=== PATIENT | female | born 1950 | race Caucasian/White ===

== ENCOUNTER → 2017-11-24 16:58 | Outpatient (REF) | payer MEDICARE, BC, SELFPAY ==
--- NOTE | 2017-11-24 16:00 | SKI_PTH ---
PATIENT: Pauly Miller LOC: [facility] U#:[id number] AGE/SX: 74/F ROOM: RE11/24/[address]: Gail Evangelista APRN : 1950 BED: DIS: SPEC #: [id number] RECD: 11/25/17 12:18 STATUS: DONNELL MADRIGAL #: [id number] NEO: 11/24/17 16:[address]: Gail Evangelista DEPT: Surgical Specimen RECD BY: Marisol Dupree Tissues: 1 - SKIN CYST/TAG/DEBRIDEMENT Procedures: SKIN BIOPSY LEVEL 3 Comments: [id number]
== END ==
LOC: LBN 16:58
DX: L82.0 Inflamed seborrheic keratosis (principal)
CPT/HCPCS: 88304

== ENCOUNTER 2017-12-13 07:05 | Outpatient (CLI) | payer MEDICARE, BC, SELFPAY ==
[2017-12-13 11:11] LABS: ALT 25 U/L (12-78); AST 24 U/L (15-37); Albumin 3.5 g/dL (3.4-5.0); Alkaline Phosphatase 82 U/L (46-116); Anion Gap 6.5 mmol/L (3-11); BUN 12 mg/dL (7-18); Bilirubin, Total 0.5 mg/dL (0.2-1.0); CO2 29.5 mmol/L (21.0-32.0); CREATININE 0.65 mg/dL (0.55-1.02); Calcium 8.8 mg/dL (8.5-10.1); Chloride 100 mmol/L (98-107); Glucose 88 mg/dL (70-100); Potassium 4.1 mmol/L (3.5-5.1); Sodium 136 mmol/L (136-145); TSH (W/Ref FT4) 2.77 uIU/mL (0.358-3.74); Total Protein 6.5 g/dL (6.4-8.2)
== END 2017-12-13 07:25 ==
DX: E03.9 Hypothyroidism, unspecified (principal)
CPT/HCPCS: 36415; 80053; 84443

== ENCOUNTER 2018-04-15 01:37 | Outpatient (CLI) | payer MEDICARE, BC, SELFPAY ==
[2018-04-15 12:30] LABS: TSH (W/Ref FT4) 4.16 uIU/mL (0.358-3.74)
[2018-04-15 12:54] LABS: FREE T4 1.01 ng/dL (0.76-1.46)
== END 2018-04-15 01:57 ==
DX: E03.9 Hypothyroidism, unspecified (principal); G47.00 Insomnia, unspecified
CPT/HCPCS: 36415; 84439; 84443

== ENCOUNTER 2018-08-29 09:47 | Outpatient (CLI) | payer MEDICARE, BC, SELFPAY ==
[2018-08-29 13:00] LABS: TSH (W/Ref FT4) 1.82 uIU/mL (0.358-3.74)
== END 2018-08-29 10:07 ==
DX: E03.9 Hypothyroidism, unspecified (principal); G47.00 Insomnia, unspecified
CPT/HCPCS: 36415; 84443

== ENCOUNTER 2018-12-27 12:32 | Outpatient (CLI) | payer MEDICARE, BC, SELFPAY ==
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
== END 2018-12-27 12:52 ==
DX: M25.562 Pain in left knee (principal); M17.12 Unilateral primary osteoarthritis, left knee
CPT/HCPCS: 73562

== ENCOUNTER 2018-12-30 08:13 | Outpatient (CLI) | payer MEDICARE, BC, SELFPAY ==
[2018-12-30 11:17] LABS: ALT 21 U/L (14-59); AST 18 U/L (15-37); Albumin 3.8 g/dL (3.4-5.0); Alkaline Phosphatase 78 U/L (46-116); Anion Gap 7.6 mmol/L (3-11); BUN 10 mg/dL (7-18); Bilirubin, Total 0.6 mg/dL (0.2-1.0); CO2 30.4 mmol/L (21.0-32.0); CREATININE 0.85 mg/dL (0.55-1.02); Calcium 9.5 mg/dL (8.5-10.1); Chloride 99 mmol/L (98-107); Glucose 91 mg/dL (70-100); Potassium 4.7 mmol/L (3.5-5.1); Sodium 137 mmol/L (136-145); TSH (W/Ref FT4) 3.62 uIU/mL (0.36-3.74); Total Protein 6.9 g/dL (6.4-8.2); Vitamin B12 796 pg/mL (193-986)
== END 2018-12-30 08:33 ==
DX: E03.9 Hypothyroidism, unspecified (principal); R41.3 Other amnesia; G47.00 Insomnia, unspecified; D51.8 Other vitamin B12 deficiency anemias
CPT/HCPCS: 36415; 80053; 82607; 84443

== ENCOUNTER 2020-03-01 02:01 | Outpatient (CLI) | payer MEDICARE, BC, SELFPAY ==
[2020-03-02 16:45] LABS: COVID-19 RT-PCR Result NEGATIVE (Negative)
== END 2020-03-01 02:21 ==
DX: Z11.59 Encounter for screening for other viral diseases (principal)
CPT/HCPCS: U0003

== ENCOUNTER 2020-03-23 11:30 | Emergency (ER) | payer MEDICARE, BC, SELFPAY ==
[2020-03-23] VITALS (14 sets, daily range): BP systolic 109–125; BP diastolic 67–72; PULSE 61–84; RESP 14–24; TEMP 36.5; O2SAT 95–99
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
--- NOTE | 2020-03-23 11:45 | RT.EKG_ITS ---
APPROVED REPORT Exam: Resting ECG Patient Location: E HR:64 bpm ECG Measurements Heart Rate 64 AXIS AR 155 P 35 QRSd 73 QRS 56 QT 419 T 56 QTc 433 Conclusion Sinus rhythm...normal P axis, V-rate 60- 99
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
[2020-03-23] MEDS: Normal Saline Flush 10 ML SYR IVP ×2 (12:00→13:05)
[2020-03-23 12:01] LABS: Abs Immature Grans 0.08 10^3/uL (0.0-0.06); Absolute Basophil Count 0.07 10^3/uL (0.0-0.2); Absolute Eosinophil Count 0.16 10^3/uL (0.0-0.7); Absolute Lymphocyte Count 1.76 10^3/uL (1.2-3.4); Absolute Monocyte Count 0.73 10^3/uL (0.1-0.8); Absolute Neutrophil Count 7.62 10^3/uL (1.2-6.7); Basophils % 0.7; Eosinophils % 1.5; HCT 41.7 % (36.0-46.0); HGB 14.3 g/dL (11.2-15.7); Immature Grans % 0.8; Lymphocytes % 16.9; MCH 32.1 pg (27.0-33.0); MCHC 34.3 % (32.0-36.0); MCV 93.5 fL (80-95); MPV 9.5 fL (8.0-11.0); Neutrophils % 73.1; Nucleated RBC 0 %; Platelet Count 254 10^3/uL (130-400); RBC 4.46 10^6/uL (3.93-5.22); RDW 11.7 % (11.7-14.6); RDW-SD 40.4 fL; WBC 10.42 10^3/uL (4.4-10.8)
[2020-03-23] MEDS: Normal Saline 1,000 ML 150 ML IV (12:05)
[2020-03-23 12:15] LABS: ALT 37 U/L (14-59); AST 36 U/L (15-37); Albumin 3.8 g/dL (3.4-5.0); Alkaline Phosphatase 96 U/L (46-116); Anion Gap 5.6 mmol/L (3-11); BUN 9 mg/dL (7-18); Bilirubin, Total 0.6 mg/dL (0.2-1.0); CO2 28.4 mmol/L (21.0-32.0); CREATININE 0.76 mg/dL (0.55-1.02); Calcium 9.2 mg/dL (8.5-10.1); Chloride 97 mmol/L (98-107); Glucose 114 mg/dL (74-106); Magnesium 2.1 mg/dL (1.8-2.4); Potassium 3.7 mmol/L (3.5-5.1); Sodium 131 mmol/L (136-145); Total Protein 7.1 g/dL (6.4-8.2)
[2020-03-23] MEDS: Omnipaque 350 MG/ML 100 ML BTL IJ (13:05)
[2020-03-23] MEDS: Normal Saline - Diluent 50 ML VIAL IV (13:05)
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
[2020-03-23] MEDS: Acetaminophen 500 MG TAB 1000 MG PO (14:40)
[2020-03-23] MEDS: oxyCODONE 5 MG TAB PO (14:40)
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
--- NOTE | 2020-03-23 15:05 | NUR.NOTE ---
Nursing Note: Family updated on results and plan of care- aware pt is requesting home discharge. concerned about pt's sensitivit to 'strong medication'. MD aware.
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
[2020-03-23] MEDS: Ondansetron O.D.T. 4 MG TABEF, 3 TABS/BTL PO (15:40)
== END 2020-03-23 15:52 | disposition home or self-care (01) ==
PROVIDERS: Emergency Provider Emergency Medicine
DX: S42.002A Fracture of unspecified part of left clavicle, initial encounter for closed fracture (principal); S62.524A Nondisplaced fracture of distal phalanx of right thumb, initial encounter for closed fracture; S22.43XA Multiple fractures of ribs, bilateral, initial encounter for closed fracture; S00.03XA Contusion of scalp, initial encounter; V18.0XXA Pedal cycle driver injured in noncollision transport accident in nontraffic accident, initial encounter
CPT/HCPCS: 74177; 80053; 93005; 96360; 96361; 99285; 70450; 71260; 72125; 73030; 73140; 83735; 85025; 93010; 99284; J3490

== ENCOUNTER 2020-04-11 11:14 | Outpatient (CLI) | payer MEDICARE, BC, SELFPAY ==
--- NOTE | 2020-04-11 11:00 | DI.RAD_ITS ---
EXAM: XR CLAVICLE LT CLINICAL HISTORY: follow up TECHNIQUE: COMPARISON: CR,XR XR SHOULDER LT COMPLETE 2+V from 03/23/2020 FINDINGS: Two views were obtained and show previously described fracture of the distal clavicle with no gross i nterval change in alignment of the fracture fragments in comparison with previous examination Decee r . Left 2nd rib and 1st rib fractures also again noted, unchanged. IMPRESSION: RADIATION DOSE DELIVERED: Total DLP
--- NOTE | 2020-04-11 11:00 | DI.RAD_ITS ---
EXAM: XR THUMB RT CLINICAL HISTORY: follow up TECHNIQUE: COMPARISON: CR,XR XR THUMB RT from 03/23/2020 FINDINGS: Three views were obtained and again show mildly displaced fracture of the distal phalanx of the thumb , no gross interval change in alignment of fracture fragments in comparison with previous examination of March 23. IMPRESSION: RADIATION DOSE DELIVERED: Total DLP
== END 2020-04-11 11:34 ==
PROVIDERS: Visit Provider Physician Assistant Surgical
DX: S62.521A Displaced fracture of distal phalanx of right thumb, initial encounter for closed fracture (principal); S42.032A Displaced fracture of lateral end of left clavicle, initial encounter for closed fracture; S22.43XA Multiple fractures of ribs, bilateral, initial encounter for closed fracture; V18.0XXA Pedal cycle driver injured in noncollision transport accident in nontraffic accident, initial encounter; H61.23 Impacted cerumen, bilateral
CPT/HCPCS: 69210; 99204; 99214; 73000; 73140

== ENCOUNTER 2020-05-09 10:42 | Outpatient (CLI) | payer MEDICARE, BC, SELFPAY ==
--- NOTE | 2020-05-09 10:30 | DI.RAD_ITS ---
EXAM: XR THUMB RT CLINICAL HISTORY: f/u R thumb frx. TECHNIQUE: 2D digital imaging was performed. COMPARISON: CR XR THUMB RT from 04/11/2020 FINDINGS: There has been no change in alignment of the fracture of the distal phalanx of the thumb. There has been some healing at the fracture site. Degenerative changes are again noted, greatest at the 1st ca rpal metacarpal joint. DATA REPOSITORY: RADIATION DOSE DELIVERED:
--- NOTE | 2020-05-09 10:30 | DI.RAD_ITS ---
EXAM: XR CLAVICLE LT INDICATION: f/u L clavicle frx. COMPARISON: CR XR CLAVICLE LT from 04/11/2020 TECHNIQUE: 2D digital imaging was performed. FINDINGS: Has been no change in the alignment of the distal clavicle fracture. There is mildly increased callu s formation around the fracture site. There is no change in the widening of the AC joint. DATA REPOSITORY: RADIATION DOSE DELIVERED:
== END 2020-05-09 10:43 | disposition home or self-care (01) ==
LOC: DIORS 10:43
PROVIDERS: Visit Provider Student in an Organized Health Care Education/Training Program
DX: M18.11 Unilateral primary osteoarthritis of first carpometacarpal joint, right hand; S42.032A Displaced fracture of lateral end of left clavicle, initial encounter for closed fracture; S62.521D Displaced fracture of distal phalanx of right thumb, subsequent encounter for fracture with routine healing; S42.032D Displaced fracture of lateral end of left clavicle, subsequent encounter for fracture with routine healing; W19.XXXD Unspecified fall, subsequent encounter
CPT/HCPCS: 99213; 73000; 73140

== ENCOUNTER 2020-06-10 11:01 | Outpatient (CLI) | payer MEDICARE, BC, SELFPAY ==
[2020-06-10 12:44] LABS: TSH (W/Ref FT4) 2.55 uIU/mL (0.36-3.74)
== END 2020-06-10 11:02 | disposition home or self-care (01) ==
LOC: LOS 11:02
DX: E03.9 Hypothyroidism, unspecified (principal)
CPT/HCPCS: 36415; 84443

== ENCOUNTER 2020-11-25 20:33 | Outpatient (REF) | payer MEDICARE, BC, SELFPAY ==
[2020-11-25 17:12] LABS: Bilirubin Negative (Negative); Blood Moderate (Negative); Clarity Sl Cloudy (Clear); Glucose Negative (Negative); Ketones Negative (Negative); Leukocyte Esterase Small (Negative); Nitrite Negative (Negative); Specific Gravity 1.015 (1.005-1.025); Urobilinogen 0.2 EU/dL (Up TO 0.2); pH 6.5 (5-8)
[2020-11-25 17:20] LABS: Bacteria Moderate HPF (Negative); C & S Indicated? C&S Done As Ordered; Casts Negative LPF (Negative); Crystals Negative HPF (Negative); Epithelial Cells Few HPF (Negative); Mucus Trace (Negative)
== END 2020-11-25 20:34 | disposition home or self-care (01) ==
LOC: LBN 20:33
PROVIDERS: Visit Provider Physician Assistant
DX: N39.0 Urinary tract infection, site not specified (principal); R30.9 Painful micturition, unspecified
CPT/HCPCS: 81003; 81015; 87086

== ENCOUNTER 2021-03-07 12:28 | Outpatient (CLI) | payer MEDICARE, BC, SELFPAY ==
--- NOTE | 2021-03-07 11:15 | DI.RAD_ITS ---
Exam(s) XR HIP LT COMPLETE AP PELVIS EXAM: XR HIP LT COMPLETE AP PELVIS CLINICAL HISTORY: fall, pain left upper thigh, W19.XXXA. TECHNIQUE: 2D digital imaging was performed of the left hip.Two views were obtained. AP pelvis and lateral left hip views were obtained. COMPARISON: No exams were available for comparison FINDINGS: BONES: No acute fracture is present. No bony destructive lesion is seen. JOINTS: No dislocation present. SOFT TISSUE: Normal. IMPRESSION: No acute fracture or dislocation. DATA REPOSITORY: RADIATION DOSE DELIVERED:
--- NOTE | 2021-03-07 11:15 | DI.RAD_ITS ---
Exam(s) XR FEMUR LT EXAM: XR FEMUR LT CLINICAL HISTORY: fall, pain left upper thigh, W19.XXXA. TECHNIQUE: 2D digital imaging was performed of the left femur. Four images were obtained. AP and lat eral views were obtained. COMPARISON: No exams were available for comparison FINDINGS: BONES: No acute fracture is present. No bony destructive lesion is seen. Visualized portion of knee a nd hip joints are unremarkable. SOFT TISSUE: Normal. IMPRESSION: No acute fracture or dislocation. DATA REPOSITORY: RADIATION DOSE DELIVERED:
== END 2021-03-07 12:48 ==
PROVIDERS: Visit Provider Nurse Practitioner Family
DX: M79.652 Pain in left thigh (principal); W19.XXXA Unspecified fall, initial encounter
CPT/HCPCS: 73552; 73502

== ENCOUNTER 2021-06-27 02:25 | Outpatient (CLI) | payer MEDICARE, SELFPAY ==
[2021-06-27 09:20] LABS: ALT 27 U/L (14-59); AST 25 U/L (15-37); Albumin 3.8 g/dL (3.4-5.0); Alkaline Phosphatase 105 U/L (46-116); Anion Gap 5.7 mmol/L (3-11); BUN 8 mg/dL (7-18); Bilirubin, Total 0.6 mg/dL (0.2-1.0); CO2 30.3 mmol/L (21.0-32.0); CREATININE 0.7 mg/dL (0.55-1.02); Calcium 8.9 mg/dL (8.5-10.1); Calculated LDL 115 mg/dL (<100); Chloride 100 mmol/L (98-107); Cholesterol 230 mg/dL (<200); Glucose 88 mg/dL (74-106); HDL Cholesterol 103 mg/dL (40-60); Potassium 4.1 mmol/L (3.5-5.1); Sodium 136 mmol/L (136-145); TSH (W/Ref FT4) 6.12 uIU/mL (0.36-3.74); Total Protein 6.7 g/dL (6.4-8.2); Triglyceride 61 mg/dL (<150)
[2021-06-27 09:40] LABS: FREE T4 0.97 ng/dL (0.76-1.46)
== END 2021-06-27 02:26 | disposition home or self-care (01) ==
DX: E03.9 Hypothyroidism, unspecified (principal); G47.00 Insomnia, unspecified; R41.3 Other amnesia; E78.5 Hyperlipidemia, unspecified
CPT/HCPCS: 36415; 80053; 80061; 84439; 84443

== ENCOUNTER 2021-09-24 01:58 | Outpatient (CLI) | payer MEDICARE, SELFPAY ==
[2021-09-24 12:57] LABS: Calculated LDL 98 mg/dL (<100); Cholesterol 216 mg/dL (<200); HDL Cholesterol 112 mg/dL (40-60); TSH (W/Ref FT4) 1.48 uIU/mL (0.36-3.74); Triglyceride 32 mg/dL (<150)
== END 2021-09-24 01:59 | disposition home or self-care (01) ==
LOC: LOS 01:58
DX: E03.9 Hypothyroidism, unspecified (principal); E78.5 Hyperlipidemia, unspecified
CPT/HCPCS: 36415; 80061; 84443

== ENCOUNTER 2021-12-25 04:11 | Outpatient (CLI) | payer MEDICARE, SELFPAY ==
[2021-12-25 14:23] LABS: TSH (W/Ref FT4) 1.48 uIU/mL (0.36-3.74)
== END 2021-12-25 04:12 | disposition home or self-care (01) ==
LOC: LOS 04:12
PROVIDERS: Visit Provider Family Medicine
DX: E03.9 Hypothyroidism, unspecified (principal)
CPT/HCPCS: 36415; 84443

== ENCOUNTER 2022-07-14 16:58 | Outpatient (CLI) | payer MEDICARE, SELFPAY ==
[2022-07-14 18:27] LABS: TSH (W/Ref FT4) 7.03 uIU/mL (0.36-3.74)
[2022-07-14 18:46] LABS: FREE T4 0.89 ng/dL (0.76-1.46)
== END 2022-07-14 16:59 | disposition home or self-care (01) ==
LOC: LBO 16:58
PROVIDERS: PCP Nurse Practitioner Family; Visit Provider Nurse Practitioner Family
DX: E03.9 Hypothyroidism, unspecified (principal)
CPT/HCPCS: 36415; 84439; 84443

== ENCOUNTER 2022-09-01 13:20 | Outpatient (REF) | payer MEDICARE, SELFPAY ==
--- NOTE | 2022-09-01 12:10 | SKI_PTH ---
PATIENT: Pauly Miller LOC: N U#:[id number] AGE/SX: 72/F ROOM: RE09/01/[address]: Juan Sanches DNP : 1950 BED: DIS: 09/01/2022 SPEC #: [id number] RECD: 09/02/22 10:38 STATUS: DONNELL MADRIGAL #: [id number] NEO: 09/01/22 12:[address]: Juan Harley DEPT: Surgical Specimen RECD BY: Marisol Dupree Tissues: 1 - SKIN BIOPSY(SHAVE/PUNCH) Procedures: SKIN LEVEL 4 Comments:
== END 2022-09-01 13:21 | disposition home or self-care (01) ==
LOC: LBN 13:20
PROVIDERS: PCP Nurse Practitioner Family; Visit Provider Nurse Practitioner Family
DX: L82.1 Other seborrheic keratosis (principal)
CPT/HCPCS: 88305

== ENCOUNTER 2022-09-11 13:16 | Outpatient (REF) | payer MEDICARE, SELFPAY ==
[2022-09-11 21:26] LABS: TSH (W/Ref FT4) 9.41 uIU/mL (0.36-3.74)
== END 2022-09-11 13:17 | disposition home or self-care (01) ==
LOC: NCHCN 13:16
PROVIDERS: PCP Nurse Practitioner Family; Visit Provider Nurse Practitioner Family
DX: E03.9 Hypothyroidism, unspecified (principal)
CPT/HCPCS: 84439; 84443

== ENCOUNTER 2023-01-08 14:52 | Outpatient (CLI) | payer MEDICARE, SELFPAY ==
--- NOTE | 2023-01-08 14:45 | RT.EKG_ITS ---
APPROVED REPORT Exam: Resting ECG Reason for Exam: SOB on exertion Patient Location: O HR:77 bpm ECG Measurements Heart Rate 77 AXIS WA 160 P 10 QRSd 69 QRS 54 QT 374 T 52 QTc 424 Conclusion Sinus rhythm...normal P axis, V-rate 50- 99 Normal Electrocardiogram
== END 2023-01-08 14:53 | disposition home or self-care (01) ==
LOC: DI.CM 14:54
PROVIDERS: PCP Nurse Practitioner Family; Visit Provider Nurse Practitioner Family
DX: R06.02 Shortness of breath (principal)
CPT/HCPCS: 93010

== ENCOUNTER 2023-01-20 03:37 | Outpatient (CLI) | payer MEDICARE, SELFPAY ==
[2023-01-20 12:18] LABS: MCH 32.3 pg (27.0-33.0); MCHC 34.1 % (32.0-36.0); MCV 95 fL (80-95); MPV 10.5 fL (8.0-11.0); Platelet Count 300 10^3/uL (130-400); RBC 4.34 10^6/uL (3.93-5.22); RDW 11.8 % (11.7-14.6); RDW-SD 41.2 fL; WBC 5.55 10^3/uL (4.4-10.8)
[2023-01-20 13:29] LABS: ALT 29 U/L (14-59); AST 25 U/L (15-37); Albumin 3.6 g/dL (3.4-5.0); Alkaline Phosphatase 88 U/L (46-116); Anion Gap 8.3 mmol/L (3-11); BUN 6 mg/dL (7-18); Bilirubin, Total 0.6 mg/dL (0.2-1.0); CO2 27.7 mmol/L (21.0-32.0); CREATININE 0.6 mg/dL (0.55-1.02); Calcium 9.4 mg/dL (8.5-10.1); Chloride 100 mmol/L (98-107); Estimated GFR 94.72 (mL/min/1.73m2); Glucose 92 mg/dL (74-106); Potassium 3.9 mmol/L (3.5-5.1); Sodium 136 mmol/L (136-145); TSH (W/Ref FT4) 1.33 uIU/mL (0.36-3.74); Total Protein 6.9 g/dL (6.4-8.2); Vitamin B12 724 pg/mL (193-986)
[2023-01-21 10:23] LABS: Syphilis Serology (RPR) Negative (Negative)
== END 2023-01-20 03:38 | disposition home or self-care (01) ==
LOC: LOS 03:37
PROVIDERS: PCP Nurse Practitioner Family; Visit Provider Nurse Practitioner Family
DX: R41.3 Other amnesia (principal)
CPT/HCPCS: 36415; 80053; 85027; 82607; 84443; 86592

== ENCOUNTER 2023-02-22 22:28 | Outpatient (REF) | payer MEDICARE, SELFPAY ==
[2023-02-24 13:08] LABS: HSV 1 DNA Result Negative (Negative); HSV 2 DNA Result Negative (Negative)
== END 2023-02-22 22:29 | disposition home or self-care (01) ==
LOC: LBN 22:28
PROVIDERS: PCP Nurse Practitioner Family; Visit Provider Nurse Practitioner Family
DX: N90.89 Other specified noninflammatory disorders of vulva and perineum (principal)
CPT/HCPCS: 87077; 87529; 87070; 87205

== ENCOUNTER 2023-08-25 05:16 | Outpatient (CLI) | payer MEDICARE, SELFPAY ==
[2023-08-25 12:57] LABS: TSH (W/Ref FT4) 2.83 uIU/mL (0.36-3.74)
== END 2023-08-25 05:17 | disposition home or self-care (01) ==
LOC: LOS 05:16
PROVIDERS: PCP Nurse Practitioner Family; Visit Provider Nurse Practitioner Family
DX: E03.9 Hypothyroidism, unspecified (principal)
CPT/HCPCS: 36415; 84443

== ENCOUNTER 2024-07-12 21:16 | Outpatient (REF) | payer MEDICARE, SELFPAY ==
[2024-07-12 21:51] LABS: ALT 25 U/L (14-59); AST 24 U/L (15-37); Albumin 3.7 g/dL (3.4-5.0); Alkaline Phosphatase 104 U/L (46-116); Anion Gap 6.6 mmol/L (3-11); BUN 11 mg/dL (7-18); Bilirubin, Total 0.4 mg/dL (0.2-1.0); CO2 28.4 mmol/L (21.0-32.0); CREATININE 0.7 mg/dL (0.55-1.02); Calcium 10.1 mg/dL (8.5-10.1); Chloride 102 mmol/L (98-107); Estimated GFR 90.14 (mL/min/1.73m2); Glucose 87 mg/dL (74-106); Potassium 4.4 mmol/L (3.5-5.1); Sodium 137 mmol/L (136-145); TSH (W/Ref FT4) 3.71 uIU/mL (0.36-3.74); Total Protein 6.7 g/dL (6.4-8.2)
== END 2024-07-12 21:17 | disposition home or self-care (01) ==
LOC: LBN 21:16
PROVIDERS: PCP Nurse Practitioner Family; Visit Provider Nurse Practitioner Family
DX: E03.9 Hypothyroidism, unspecified (principal); R41.3 Other amnesia; H61.20 Impacted cerumen, unspecified ear
CPT/HCPCS: 80053; 84443

== ENCOUNTER → 2025-03-12 07:40 | Outpatient (CLI) | payer MEDICARE, SELFPAY ==
--- NOTE | 2025-03-12 08:48 | DI.RAD_ITS ---
Exam(s) XR TOE LT GREAT EXAM: XR TOE LT GREAT CLINICAL HISTORY: great toe pain,? fx MCP joint on left,injury,s99.051h. TECHNIQUE: 2D digital imaging was performed of the left foot. Three images were obtained. AP, oblique and lateral views were obtained. COMPARISON: No exams were available for comparison FINDINGS: BONES: There lucency seen in the lateral aspect of the head of the 2nd metatarsal suspicious for nondisplaced fracture. This is appreciated on the AP view. No bony destructive lesion is seen. JOINTS: There is medial subluxation of the 2nd MTP joint. There are marked degenerative changes seen at the 1st MTP joint characterized by joint space narrowing and osteophytes. SOFT TISSUE: Normal. IMPRESSION: 1. Question of a nondisplaced fracture involving the head of the 2nd metatarsal. 2. Marked degenerative changes seen at the 1st MTP joint. 3. No definite acute fracture is seen of the great toe. 4. Medial subluxation at the 2nd MTP joint. DATA REPOSITORY: RADIATION DOSE DELIVERED:
== END ==
LOC: DI 07:41
PROVIDERS: PCP Nurse Practitioner Family; Visit Provider Physician Assistant
DX: S99.922A Unspecified injury of left foot, initial encounter (principal); M19.072 Primary osteoarthritis, left ankle and foot; X58.XXXA Exposure to other specified factors, initial encounter
CPT/HCPCS: 73660

== ENCOUNTER → 2025-03-14 07:53 | Outpatient (BNVA) | payer MEDICARE, SELFPAY | PROVIDERS: PCP Nurse Practitioner Family; Referring Provider Nurse Practitioner Family; Visit Provider Podiatrist | DX: S93.145A Subluxation of metatarsophalangeal joint of left lesser toe(s), initial encounter (principal); S90.32XA Contusion of left foot, initial encounter; M77.42 Metatarsalgia, left foot; G57.92 Unspecified mononeuropathy of left lower limb; W20.8XXA Other cause of strike by thrown, projected or falling object, initial encounter; Y93.89 Activity, other specified; M20.41 Other hammer toe(s) (acquired), right foot; M20.42 Other hammer toe(s) (acquired), left foot | CPT/HCPCS: 99203 ==

== ENCOUNTER → 2025-03-23 23:04 | Outpatient (CLI) | payer MEDICARE, SELFPAY ==
--- NOTE | 2025-03-23 14:15 | DI.CT_ITS ---
Exam(s) CT HEAD WO EXAM: CT HEAD WO CLINICAL HISTORY: S09.90XA Unspedified head injury posterior. TECHNIQUE: Imaging Protocol: Axial computed tomography images with coronal and sagittal reformatted images were created and reviewed COMPARISON: CT HEAD FACIALS WO from 09/22/[address] HEAD CERVICAL SPINE WO from 03/23/2020 FINDINGS: Ventricles and Extra axial spaces: Normal in size and morphology for the patient's age. Hemorrhage: None. Cerebral parenchyma: There is no evidence of an acute territorial infarct or mass effect. There are subtle areas of decreased attenuation in the white matter suggesting chronic microvascular ischemic disease. Midline shift: None. Brainstem/Cerebellum: Normal. Calvarium: Normal. Visualized Paranasal sinuses/Mastoids: Clear. Soft Tissues: There is soft tissue swelling over the right posterior parietal bone. IMPRESSION: 1. No acute intracranial process. 2. Soft tissue swelling of the right posterior parietal bone. RADIATION DOSE DELIVERED: 1,791.54mGy.cm Total DLP DATA REPOSITORY: All CT scans at this facility are submitted to the National Radiology Data Registry (NRDR) Dose Index Registry (DIR) with the [employer] ([employer]). RADIATION OPTIMIZATION: All CT scans at this facility use at least one of these dose optimization techniques: automated exposure control; mA and/or kV adjustment per patient size (includes targeted exams where dose is matched to clinical indication); or iterative reconstruction.
== END ==
LOC: DI 23:04
PROVIDERS: PCP Nurse Practitioner Family; Visit Provider Physician Assistant
DX: S09.90XA Unspecified injury of head, initial encounter (principal)
CPT/HCPCS: 70450